=== PATIENT | female | born 1980 | race Caucasian/White ===

== ENCOUNTER → 2016-12-01 | Day surgery (SDC) | payer OTHER ==
[~2016-12-01] VITALS: Ht 167.6 cm; Wt 64.0 kg
[~2016-12-01] MED LIST: /LINE60TA PO; BACT800T5 PO; BEANTAB2 PO; BIRTH CONTROL PO; CLIN1AER TOP; DOXY-278 PO; EPIP0.3I2 IM; FLON1SPR; GLYCOPYRROLATE INJ 0.2 MG/ML 2 ML VIAL As Ordered ONE; LACT30TA PO; LIDOCAINE W/EPINEPHRINE 1% 20ML VIAL As Ordered ONE; LIDOCAINE W/EPINEPHRINE 1% 20ML VIAL XX ONE; LR 1,000 ML IV SCH; METHYLENE BLUE 1% 10 ML VIAL (Q9968) As Ordered ONE; METHYLENE BLUE 1% 10 ML VIAL (Q9968) XX ONE; METOCLOPRAMIDE INJ 10MG/2ML VIAL (J2765) IV PRN; MIDAZOLAM INJ 2 MG/2 ML VIAL (J2250) As Ordered ONE; MOTRIN PO; ONDANSETRON 4MG/2ML VIAL (J2405) As Ordered ONE; ONDANSETRON 4MG/2ML VIAL (J2405) IV PRN; OXYMETAZOLINE NASAL SPRAY (AFRIN) As Ordered ONE; OXYMETAZOLINE NASAL SPRAY (AFRIN) XX ONE; PERCOCET 5MG/325MG TAB PO PRN; PERCOCET PO; PROBCAP4 PO; PROPOFOL 200 MG/20 ML VIAL As Ordered ONE; ROCURONIUM BROMIDE 50 MG/5 ML VIAL As Ordered ONE; SENO8.6T9 PO; SUCCINYLCHOLINE 100 MG/5 ML SYRINGE (J0330) As Ordered ONE; VITA100072 PO; VITA500046 PO; YAZ3TAB PO; ZINC30TA3 PO; ZYRT10CA PO; dexameTHASONE 4 MG/ML 1ML VIAL (J1100) As Ordered ONE; fentaNYL 100 MCG/2 ML INJECTION (J3010) As Ordered ONE; fentaNYL 100 MCG/2 ML INJECTION (J3010) IV PRN; fentaNYL 250 MCG/5 ML INJECTION (J3010) As Ordered ONE
[2016-12-01 09:43] LABS: CONTROL LINE UCG INT CTR LINE PRESENT
[2016-12-01] MEDS: LR 1,000 ML IV SCH (09:55)
[2016-12-01 12:45] VITALS: BP 118/62
--- NOTE | 2016-12-07 07:12 | RO ---
DATE OF PROCEDURE: 12/01/2016 PREPROCEDURE DIAGNOSES: Deviated septum. Hypertrophic turbinates. POSTPROCEDURE DIAGNOSES: Deviated septum. Hypertrophic turbinates. PROCEDURE: Septoplasty with partial reduction of inferior turbinates. SURGEON: Dr. Jaden Diop MA[employer] COOKING: ANESTHESIA: INDICATION: This is a 36-year-old who presents with a history of many years of nasal obstruction. DESCRIPTION OF PROCEDURE: Satisfactory general endotracheal administered. Pharyngeal pack placed in the nose. Prepared for surgery by placing cotton-soaked pledgets with Afrin solution to the nasal cavity bilaterally. 1% Xylocaine with 1:100,000 epinephrine was used to inject the nasal septum and inferior turbinates. A Junior incision made on the left side of the nasal septum. Mucoperichondrium was elevated off the septum until the junction of the bony and cartilaginous septum was identified, with an elevator, and an envelope created on the right side of the septum. Casey scissors were used to make a cut high in the perpendicular plate in the vomer to remove a central segment of bony septum. Using the round knife on the Won elevator, a central segment of cartilaginous septum was then resected, delivering a 1 cm dorsal caudal strut. A strip of cartilage was resected from the floor of the nose, creating a swinging door of the remaining quadrilateral cartilage. Double-action rongeur was used to take down the overhang of perpendicular plate, which was deflected. Incision was then closed using interrupted #4-0 chromic suture. A #5-0 plain suture was placed in the [id number] fashion through the two leaves of the mucoperichondrium to oppose them. Next, the inferior turbinates were medially infractured. A #15 blade was used to make an incision on the anterior tip. Periosteal tunnel created on the medial side of the turbinate and the microdebrider inserted, and the turbinate bone was weakened with the microdebrider, so was the submucosa of the mucosal covering of the turbinate. The turbinate was then laterally outfractured. Kim splints were placed in the nose, sewn to the columella with #2-0 Prolene suture. The pharyngeal pack removed. Throat was suctioned. The patient was then awakened, extubated, and sent to recovery in satisfactory condition. She will be discharged home on Tylox for pain and will be seen back in the office in 2 days for splint removal.
== END | disposition home or self-care (01) ==
LOC: M SDC 07:45
PROVIDERS: ATTEND Specialist
DX: J34.2 Deviated nasal septum (principal); J31.0 Chronic rhinitis; K58.9 Irritable bowel syndrome, unspecified; G43.909 Migraine, unspecified, not intractable, without status migrainosus; Z72.0 Tobacco use; Z88.0 Allergy status to penicillin; Z88.1 Allergy status to other antibiotic agents; Z91.013 Allergy to seafood; Z91.010 Allergy to peanuts; Z91.040 Latex allergy status; Z91.030 Bee allergy status; Z79.899 Other long term (current) drug therapy
CPT/HCPCS: 30130; 30520; 84703; 88300; J0330; J1100; J2250; J2405; J3010; Q9968